=== PATIENT | male | born 1990 | race Caucasian/White ===

== ENCOUNTER 2025-01-13 12:27 | Emergency (ER) | payer OTHER ==
[~2025-01-13] VITALS: Ht 180.3 cm; Wt 88.6 kg
[2025-01-13 13:33] VITALS: BP 138/87; PULSE 108; RESP 18; TEMP 98.2; O2SAT 100
== END 2025-01-13 14:14 | disposition home or self-care (01) ==
LOC: EMS 12:30
DX: Z02.89 Encounter for other administrative examinations (principal); L08.9 Local infection of the skin and subcutaneous tissue, unspecified; I10 Essential (primary) hypertension; Z98.890 Other specified postprocedural states; Z88.1 Allergy status to other antibiotic agents
CPT/HCPCS: 99283; Z7502